=== PATIENT | female | born 1960 | race Caucasian/White ===

== ENCOUNTER → 2017-01-12 | Outpatient (CLI) | payer BC ==
[~2017-01-12] MED LIST: ACETAMINOPHEN325 MG PO; ALLEGRA PO; ALLEGRA180 MG PO; BAYER ASPIRIN325 M1 PO; BONIVA150 MG PO; CALCIUM 600 +1 EAC5 PO; CERTAGEN PO; CLARITIN10 M3 PO; COUMADIN6 MG PO; LEVOTHYROXINE50 MCG PO; LEVOTHYROXINE75 MCG PO; LORTAB 10-3251 EACH PO; LORTAB 7.5-5001 TAB PO; OMEPRAZOLE20 M1 PO; PERCOCET 10/31 UDTA1 PO; PROLIA60 MG/1 ML SQ; SYNTHROID PO; VITAMIN D1000 UNIT PO
--- NOTE | ~2017-01-12 | CO ---
Unit #: [id number] #: [id number] Patient: EDIS ANDRADE [id number] [address] [place], [place] [address] [id number] O MR#: [id number] NAME: EDIS ANDRADE ROOM: Age: 56 Sex: F Admission Date: 01/12/2017 : 1960 Attending Physician: Asif Araujo M.D. Primary Care Physician: Lindsay Man M.D. Consultation Date: 01/12/2017 CONSULTATION REPORT REASON FOR CONSULTATION Preoperative medical evaluation prior to left total knee arthroplasty scheduled by Dr. Araujo for 01/24/17. HISTORY OF PRESENT ILLNESS The patient is a 56-year-old female who presents to preprocedural screening for the reason as indicated above. She has no complaints at the time of the interview today. She denies recent or current upper chest, arm, neck, back or jaw pain or pressure. Denies dyspnea on exertion. Does not awake gasping for air, although she admits to snoring. She has not had recommendation for obstructive sleep apnea testing. She denies lightheadedness, dizziness, pre-syncope, syncope or heart palpitations. She denies history of myocardial infarction, congestive heart failure, CVA, TIA, diabetes mellitus or kidney disease. She has been evaluated by Dr. Araujo and scheduled for the above referenced procedure. PAST MEDICAL HISTORY 1. Osteoarthritis. 2. Obesity. BMI 33. 3. GERD. 4. Hypothyroidism. 5. Allergic rhinitis. 6. Osteoporosis, on Prolia injections. Next injection due on 01/17/17. 7. History of postoperative nausea. PAST SURGICAL HISTORY 1. ORIF with placement of external fixator of the left knee in November of 2003 with removal of fixator in January of 2004. 2. ORIF of the left patella secondary to fracture in June of 2009. 3. Tubal ligation. 4. Left knee arthroscopy, June of 2007. 5. Right knee arthroscopy years ago. 6. Plates and screws placed in the tibia. NOTE: The patient reports history of postoperative nausea as a complication to anesthesia. ALLERGIES Denies latex allergy. Denies medication allergies. She reports an adverse reaction to codeine as nausea. CURRENT MEDICATIONS 1. Claritin 10 mg p.o. daily. Unit #: [id number] #: [id number] Patient: EDIS ANDRADE 2. Levothyroxine sodium 75 mcg p.o. daily. 3. Calcium 600 plus vitamin D capsule 1 p.o. daily. 4. Vitamin D 1,000 units p.o. daily. 5. Prolia 60 mg subcu every 6 months. Next injection due 01/17/17. SOCIAL HISTORY Denies tobacco use, ETOH use and illicit drug use. FAMILY HISTORY Father had environmentally induced cancer. Denies immediate family history of coronary artery disease, hypertension, diabetes. REVIEW OF SYSTEMS A 10-point review of systems was conducted and otherwise negative except as indicated under history of present illness above. PHYSICAL EXAMINATION GENERAL: A 56-year-old female, awake, alert, in no acute distress. VITAL SIGNS: Temperature 97.4, heart rate 52, respiratory rate 16, blood pressure 169/74, oxygen saturation 99% on room air. HEENT: Atraumatic, normocephalic. Sclerae anicteric. No discharge from eyes, ears or nares. LYMPH: No preauricular, postauricular, tonsillar, submental, anterior or posterior cervical adenopathy. ENDOCRINE: No thyromegaly, thyroid nodules or tenderness. RESPIRATORY: Clear to auscultation in all mercado bilaterally without wheezes, rhonchi or rales. CARDIOVASCULAR: S1, S2. Regular rate and rhythm without murmur or rub. GI: Bowel sounds positive x4. Soft, nontender. No suprapubic tenderness. EXTREMITIES: No edema, cyanosis or clubbing. MUSCULOSKELETAL: Strength 5/5 all extremities bilaterally to flexion and extension. No . NEUROLOGIC: Alert and oriented x3. Speech clear. Cranial nerves II-XII grossly intact. Follows directions for examination. DIAGNOSTIC STUDIES LABORATORY: WBC 7.1, hemoglobin 16.2, hematocrit 48, platelets 264,000. Sodium 137, potassium 3.6, chloride 103, CO2 28, glucose 102, BUN 11, creatinine 0.8, calcium 8.8, AST 16, ALT 23, alkaline phosphatase 87, bili total 0.6, total protein 6.8, albumin 4.1. Urinalysis - Leukocyte esterase trace, blood negative, RBCs 2-5, WBCs 2-5, bacteria 2+, squamous cell moderate, (1) 2-5; urine culture and sensitivity pending at this time. PT 10, INR 0.9. Blood type O+. Antibody screen pending at this time. MRSA nasal swab report pending at this time. IMAGING: Two-view chest x-ray report pending at this time. CARDIOLOGY: Twelve-lead EKG - Sinus bradycardia. Voltage criteria for LVH, nonspecific ST abnormality, abnormal ECG. ASSESSMENT/PLAN 1. The patient is a 56-year-old female who presents to preprocedural screening for preoperative medical evaluation prior to left total knee arthroplasty. The patient's Serna Revised Cardiac Risk Index is equal to approximately 0.4%. This represents the patient's estimated perioperative risk for fatal or nonfatal myocardial infarction, cardiopulmonary arrest, arrhythmia or Unit #: [id number] #: [id number] Patient: EDIS ANDRADE JOSE pulmonary edema. This has been discussed in detail with the patient. She wishes to proceed with surgery as scheduled at this time. 2. Obesity. BMI 33. 3. GERD. 4. Hypothyroidism. Will check TSH and free T4 off blood in lab today. At this point plan on continuation of home dose of levothyroxine. 5. Allergic rhinitis. Continue Claritin postoperatively. 6. Osteoporosis, on Prolia therapy. The patient has been advised to confirm with Dr. Araujo if she should get her next Prolia injection on 01/17/17 given potential for infections on this medication, and she has verbalized understanding of this information. 7. History of postoperative nausea. The patient will receive antiemetics and possibly proton pump inhibitor postoperatively. Thank you for allowing us to participate in the care of this patient. We will gladly follow the patient for postoperative medical management pending order of Dr. Araujo. Dictated by... Yoon Manning A.P.R.N. for Harvey Raymond/isela TD: 01/12/2017 12:13 JOB #: [id number] CONSULTATION REPORT Page 1 of 1 X Yoon Manning APRN X CONSULTATION REPORT
--- NOTE | ~2017-01-12 | CR63 ---
[facility] A Service of [facility] RADIOLOGY TEXT RESULTS PATIENT: EDIS ANDRADE LOCATION: [facility] : 60 UNIT #: [id number] AGE: [address]: Asif Araujo MD SEX: F ORDER DR: [id number] [facility] [address] [place], [place] [address] [id number] O MR#: [id number] Acc #: [id number] NAME: EDIS ANDRADE : 1960 SEX: F STUDY DATE/TIME: 01/12/2017 11:52 UNIT: [facility] ROOM: STUDY DESCRIPTION: CR Chest 2 View Attending Physician: sAif Araujo M.D. Referring Physician: Asif Araujo M.D. Ordering Physician: Asif Araujo M.D. Primary Care Physician: Lindsay Man M.D. MEDICAL IMAGING REPORT This report is preliminary unless electronic signature is present EXAM Chest, 01/12/2017 HISTORY 56-year-old woman preop left total knee arthroplasty. Osteoarthritis left knee. COMPARISON Chest, 04/18/2016 FINDINGS PA and lateral chest views show normal cardiac size and configuration. Mild prominence of the ascending aorta unchanged. Hilar structures are preserved. Bilateral lungs are expanded and clear. Minimal pleural response/atelectasis blunts the left costophrenic angle. IMPRESSION No acute chest finding. Dictated by... Harris Mock M.D. THIS IS AN ELECTRONICALLY VERIFIED REPORT Harris Mock M.D. at 01/12/2017 3:25 PM Pasquale TD: 01/12/2017 14:07 JOB #: [id number] MEDICAL IMAGING REPORT Page 1 of 1 COPY
--- NOTE | ~2017-01-12 | EKG ---
PATIENT: EDIS ANDRADE UNIT #: [id number] Ventricular Rate: 51 BPM Atrial Rate: 51 BPM P-R Interval: 170 ms QRS Duration: 86 ms Q-T Interval: 448 ms QTC Calculation(Bezet): 412 ms P [place]: 42 degrees Calculated R [place]: -29 degrees Calculated T [place]: 2 degrees Diagnosis Line: Sinus bradycardia Diagnosis Line: Voltage criteria for left ventricular hypertrophy Diagnosis Line: Nonspecific ST abnormality Diagnosis Line: Abnormal ECG Diagnosis Line: When compared with ECG of 18-APR-2016 06:49, Diagnosis Line: No significant change was found Diagnosis Line: Confirmed by NELLI CASH MD ([id number]) on Diagnosis Line: 01/12/2017 12:01:24 PM INTERPRETING MD: SHAILESH BRIAN
[2017-01-12 08:23] LABS: HEMOGLOBIN 16.2 gm/dL (12.0-16.0); MEAN CELL VOLUME 90.7 FL (83-96); MEAN CORPUSCULAR HEMOGLOBIN 30.5 PG (28-34); MEAN CORPUSCULAR HGB CONC 33.6 g/dL (30-36); MEAN PLATELET VOLUME 7.2 FL (6.5-11.5); RED BLOOD COUNT 5.3 X10e (3.90-5.30); RED CELL DISTRIBUTION WIDTH 12.7 % (11.0-15.5); WHITE BLOOD COUNT 7.1 X10e3 (4.0-10.5)
[2017-01-12 08:28] LABS: URINE APPEARANCE CLOUDY; URINE BILIRUBIN NEG (NEG); URINE BLOOD NEG (NEG); URINE COLOR YELLOW; URINE GLUCOSE NEG (NEG); URINE KETONE NEG (NEG); URINE LEUKOCYTE ESTERASE TRACE (NEG); URINE NITRATE NEG (NEG); URINE PROTEIN NEG (NEG); URINE SPECIFIC GRAVITY 1.023 (1.003-1.035)
[2017-01-12 08:30] LABS: CULTURE INDICATED? YES; URINE BACTERIA AUWI 2+ (NEGATIVE); URINE SQUAMOUS EPITHELIAL CELL MOD /[HPF]
[2017-01-12 08:43] LABS: INR 0.9
[2017-01-12 08:46] LABS: URINE SOURCE CLEAN CATCH
[2017-01-12 08:51] LABS: ALBUMIN SERUM 4.1 g/dL (3.5-5.0); BILIRUBIN,TOTAL 0.8 mg/dL (0.2-2.0); BUN/CREATININE RATIO 13.75; CALCIUM SERUM 8.8 mg/dL (8.4-10.2); CREATININE SERUM 0.8 mg/dL (0.6-1.4); GLOM FILT RATE Estimated 82.5 mL/min (>60); POTASSIUM 3.6 mmol/L (3.5-5.1); PROTEIN TOTAL SERUM 6.8 g/dL (6.0-8.3)
[2017-01-12 12:09] LABS: THYROID STIMULATING HORMONE 2.77 uIU/ml (0.34-5.60)
[2017-01-12 12:16] LABS: FREE THYROXIN (T4) 1.04 ng/dL (0.58-1.64)
== END | disposition home or self-care (01) ==
LOC: CAMB 07:36
PROVIDERS: Orthopaedic Surgery
DX: Z01.818 Encounter for other preprocedural examination (principal); M17.12 Unilateral primary osteoarthritis, left knee; M81.0 Age-related osteoporosis without current pathological fracture; E07.9 Disorder of thyroid, unspecified; K21.9 Gastro-esophageal reflux disease without esophagitis; E03.9 Hypothyroidism, unspecified; E66.9 Obesity, unspecified; R00.1 Bradycardia, unspecified; R94.31 Abnormal electrocardiogram [ECG] [EKG]; Z68.33 Body mass index [BMI] 33.0-33.9, adult; Z87.81 Personal history of (healed) traumatic fracture; Z88.5 Allergy status to narcotic agent
CPT/HCPCS: 36415; 71020; 80053; 81003; 84439; 84443; 85027; 85610; 86850; 86900; 86901; 87070; 87086; 93005

== ENCOUNTER 2017-01-24 06:07 | Inpatient (IN) | payer BC ==
[~2017-01-24] VITALS: Ht 162.6 cm; Wt 101.0 kg
--- NOTE | ~2017-01-24 | OR ---
Unit #: [id number] #: [id number] Patient: EDIS ANDRADE [id number] [address] [place], [place] [address] [id number] I MR#: [id number] NAME: EDIS ANDRADE ROOM: [facility] Date of Procedure: 01/24/2017 Admission Date: 01/24/2017 Surgeon: Asif Araujo M.D. : 1960 Attending Physician: Asif Araujo M.D. Primary Care Physician: Lindsay Man M.D. OPERATIVE REPORT PREOPERATIVE DIAGNOSIS Primary localized osteoarthritis of the left knee. POSTOPERATIVE DIAGNOSIS Primary localized osteoarthritis of the left knee. PROCEDURE PERFORMED Left total knee. ASSISTANTS Dora and Eldon. ANESTHESIA General. ESTIMATED BLOOD LOSS About 100 mL. INDICATIONS FOR PROCEDURE This is a 56-year-old with severe pain in her left knee. She has had progressive arthritis over the last year. She has progressively worse to the point, where she has difficulty walking or going up and down stairs. She has had a patellar realignment on this knee in the past. She has tried injections and anti-inflammatories with no relief of her discomfort. X-rays show she has [id number] with valgus alignment and subchondral sclerosis. DESCRIPTION OF PROCEDURE The patient was brought to the holding room, given 2 g of Kefzol. This will be continued postop for 2 doses. The patient refused an adductor canal block, was brought back to the operating room and given a general anesthetic. Tourniquet placed around the left thigh. The left leg was prepped and draped in a sterile fashion. Tourniquet was inflated to 300. A straight anterior skin incision was made through her previous anterior incision. The subcutaneous dissected away and a medial arthrotomy performed. The patella was slid to the side and the intramedullary guide was used and then a 6-degree valgus cut was made on the distal femur. The femur was sized and found to be a size 4. The anterior-posterior cutting block was applied. Rotation was checked in the knee. Anterior and posterior cuts were made along with the chamfer cuts. Proximal tibial cut was made using an external guide. After this was done, the remaining meniscal fragments were debrided. It was sized at a 3. The posterior Unit #: [id number] #: [id number] Patient: EDIS ANDRADE capsule and periosteum were injected with a ropivacaine mixture. The trial femur was applied. The drill holes were made for lugs on the femoral component. Trial tibia was applied with first an 8 and then a 10 insert. The 10 gave better stability and the knee still came to full extension with good stability in extension and flexion. Rotation of the tibia was marked. The external alignment guide showed appropriate alignment of the limb. The patella was grasped with 2 towel clips and measured 23 mm thick, cut smooth at 13 and a 41 patella was the appropriate size. The 3 drill holes were made. Trial patella applied and it tracked properly. We then removed all the trials, used the drill and punch for the tibial tray. The knee was irrigated and dried once again and then all 3 components were cemented simultaneously. Once again, it was a size 4 femur cruciate retaining, size 3 tibia, and a 41 patella from the [employer] knee system. Any excess cement was removed. After the cement had hardened, it was judged that the 10 insert was the appropriate thickness, so this was opened and applied to the tibia. The patient then had the components tested once again and it was found to be stable. It should be mentioned that the femur had to be cut for a TC3 femoral component because of an injury to the medial collateral ligament intraoperatively, which was repaired end to end, so the femoral component was a TC3 and the tibial insert was a size 10 fixed bearing TC3 insert. The wound was closed as mentioned with 0 Ethibond in the arthrotomy, 0 and 2-0 Vicryl in the subcutaneous, and isidro in the skin. Dictated by... Harvey Huston/wilfrid TD: 01/24/2017 16:59 JOB #: [id number] OPERATIVE REPORT Page 1 of 1 X Asif Araujo MD PROCEDURE OPERATIVE NOTE
--- NOTE | ~2017-01-24 | DS ---
Unit #: [id number] #: [id number] Patient: EDIS ANDRADE [id number] [facility]. [place], [place] [address] [id number] I MR#: [id number] NAME: EDIS ANDRADE ROOM: 449 Age: 56 Sex: F Admission Date: 01/24/2017 : 1960 Discharge Date: 01/25/2017 Attending Physician: Asif Araujo M.D. Primary Care Physician: Lindsay Man M.D. DISCHARGE SUMMARY CONSULTING PHYSICIAN HIPS for medical management. REASON FOR ADMISSION Severe osteoarthritis of the left knee. PROCEDURE Left total knee arthroplasty. HOSPITAL COURSE The patient was admitted to [facility] with a history of severe osteoarthritis of the left knee. The patient had undergone the above procedure. The patient tolerated the procedure well. She is in stable condition today. Her temperature is 98.4, blood pressure 163/75, heart rate 53 and regular, respirations 20. Her incision is healing well and neurovascular exam is intact. She had 2+ pulses in her lower extremities. The patient is in stable condition. Plan will be for discharge later today if she is safe for physical therapy. DISPOSITION Home with [facility]. PERTINENT LABS Her hemoglobin is 13.1, her PT is 12.9, INR 1.2. MEDICATIONS She will be on all of her regular medications as well as Coumadin and [place] for pain control. FOLLOWUP INSTRUCTIONS The patient will be followed by [facility] to participate in physical therapy including active, active assist range of motion, strengthening, progressive ambulation, begin with a walker, progress to a cane as tolerated. The patient will need PT/INRs done on 01/26, 01/27, 01/28, and then every Tuesday and thereafter. Call the results to [phone] or fax to [phone], attention Jun. The patient should wear CRISTIN hose during the day and off at night. The patient will not drive until seen by Dr. Araujo on 03/08/2017. Dictated by... Emery John P.A.-C- for Asif Araujo M.D. Unit #: [id number] #: [id number] Patient: EDIS ANDRADE Breonna TD: 01/25/2017 09:13 JOB #: [id number] DISCHARGE SUMMARY Page 1 of 1 X X DISCHARGE SUMMARY
[~2017-01-24 06:07] MED LIST changes: -COUMADIN6 MG PO; -LORTAB 10-3251 EACH PO
[2017-01-24 06:58] LABS: URINE APPEARANCE CLEAR; URINE BILIRUBIN NEG (NEG); URINE BLOOD NEG (NEG); URINE COLOR YELLOW; URINE GLUCOSE NEG (NEG); URINE KETONE NEG (NEG); URINE LEUKOCYTE ESTERASE NEG (NEG); URINE NITRATE NEG (NEG); URINE PROTEIN NEG (NEG); URINE SPECIFIC GRAVITY 1.019 (1.003-1.035); URINE UROBILINOGEN 0.2 MG/DL (NEG)
[2017-01-24 07:00] LABS: CULTURE INDICATED? NO; URINE SOURCE CATH
[2017-01-24 07:04] LABS: INR 0.9
[2017-01-25 03:42] LABS: HEMOGLOBIN 13.1 gm/dL (12.0-16.0)
[2017-01-25 04:01] LABS: INR 1.2; PROTHROMBIN TIME (PATIENT) 12.9 SECONDS (10.0-11.7)
[2017-01-25 04:02] LABS: BUN/CREATININE RATIO 12.5; CALCIUM SERUM 8.7 mg/dL (8.4-10.2); CREATININE SERUM 0.8 mg/dL (0.6-1.4); GLOM FILT RATE Estimated 82.5 mL/min (>60); POTASSIUM 3.8 mmol/L (3.5-5.1)
[2017-01-25] MEDS ORDERED: COUMADIN6 MG PO (10:49)
[2017-01-25] MEDS ORDERED: LORTAB 10-3251 EACH PO (10:50)
== END 2017-01-25 14:37 | disposition home health service (06) | DRG 470 ==
LOC: CSUR 06:07 → CPACUOF 08:00 → CSUR 10:17 → CPACUOF 10:17 → CSUR 11:00 → CPACUOF 11:38 → C4B 11:38
PROVIDERS: Nurse Practitioner; Orthopaedic Surgery
PROC: 0SRD0J9 Replacement of Left Knee Joint with Synthetic Substitute, Cemented, Open Approach (ICD-10-PCS; principal; 2017-01-24 08:00)
DX: M17.12 Unilateral primary osteoarthritis, left knee (principal); E03.9 Hypothyroidism, unspecified; Z88.5 Allergy status to narcotic agent; E66.9 Obesity, unspecified; Z68.33 Body mass index [BMI] 33.0-33.9, adult; K21.9 Gastro-esophageal reflux disease without esophagitis; J30.9 Allergic rhinitis, unspecified; M81.0 Age-related osteoporosis without current pathological fracture
CPT/HCPCS: 80048; 81003; 83735; 85014; 85018; 85610; 94760; 97110; 97116; 97161; C1776; G8978-GP; G8979-GP; G8980-GP; J0131; J0171; J0360; J0690; J0735; J1100; J1170; J1650; J1885; J2250; J2405; J2765; J2795

== ENCOUNTER → 2017-02-10 | Outpatient (CLI) | payer BC ==
[~2017-02-10] MED LIST changes: +COUMADIN6 MG PO; +LORTAB 10-3251 EACH PO
[2017-02-10 13:08] LABS: INR 1.5; PROTHROMBIN TIME (PATIENT) 16.7 SECONDS (10.0-11.7)
== END | disposition home or self-care (01) ==
LOC: CLAB 12:38
PROVIDERS: Orthopaedic Surgery
DX: Z51.81 Encounter for therapeutic drug level monitoring (principal); Z79.01 Long term (current) use of anticoagulants
CPT/HCPCS: 36415; 85610

== ENCOUNTER → 2017-02-14 | Outpatient (CLI) | payer BC ==
[2017-02-14 15:00] LABS: INR 1.4; PROTHROMBIN TIME (PATIENT) 15.4 SECONDS (10.0-11.7)
== END | disposition home or self-care (01) ==
LOC: CLAB 14:17
PROVIDERS: Orthopaedic Surgery
DX: Z51.81 Encounter for therapeutic drug level monitoring (principal); Z79.01 Long term (current) use of anticoagulants; Z96.652 Presence of left artificial knee joint
CPT/HCPCS: 36415; 85610

== ENCOUNTER → 2017-02-17 | Outpatient (CLI) | payer BC ==
[2017-02-17 12:50] LABS: INR 1.4; PROTHROMBIN TIME (PATIENT) 15.4 SECONDS (10.0-11.7)
== END | disposition home or self-care (01) ==
LOC: CLAB 11:36
PROVIDERS: Orthopaedic Surgery
DX: Z51.81 Encounter for therapeutic drug level monitoring (principal); Z79.01 Long term (current) use of anticoagulants
CPT/HCPCS: 36415; 85610

== ENCOUNTER → 2017-02-22 | Outpatient (CLI) | payer BC ==
[2017-02-22 15:16] LABS: INR 2.2
[2017-02-22 15:21] LABS: PROTHROMBIN TIME (PATIENT) 24.1 SECONDS (10.0-11.7)
== END | disposition home or self-care (01) ==
LOC: CLAB 14:35
PROVIDERS: Orthopaedic Surgery
DX: Z51.81 Encounter for therapeutic drug level monitoring (principal); Z79.01 Long term (current) use of anticoagulants
CPT/HCPCS: 36415; 85610